=== PATIENT | male | born 1985 | race Caucasian/White ===

== ENCOUNTER 2016-08-07 22:19 | Emergency (ER) | payer BC ==
[2016-08-07 22:41] VITALS: TEMP 97.9; BMI 28.0
[2016-08-07 22:51] LABS: BASOPHIL 0.9 % (0-2.0); EOSINOPHIL 0.8 % (0-4.5); MCH 30.4 pg (25.7-33.7); MCHC 34.2 g/dl (32.0-35.9); MEAN CELL VOLUME 88.9 fl (80-96); MEAN PLT VOLUME 7.7 fl (7.5-11.1); NEUTROPHILS 50.4 % (42.8-82.8); PLATELET COUNT 276 K/MM3 (134-434); RDW 12.7 % (11.9-15.9); WHITE BLOOD COUNT 7.4 K/mm3 (4.0-10.0)
[2016-08-07 23:12] LABS: INR 1.1 (0.82-1.09); PROTHROMBIN TIME (PATIENT) 12.1 SEC (9.98-11.88)
[2016-08-07 23:21] LABS: ALBUMIN 4.1 g/dl (3.4-5.0); ANION GAP 13 (8-16); BILIRUBIN,TOTAL 0.6 mg/dL (0.2-1.0); CALCIUM 8.4 mg/dL (8.5-10.1); CO2 23 mmol/L (21-32); COCKROFT - GAULT 116.43; CREATININE 1.1 mg/dL (0.7-1.3); GLUCOSE,RANDOM 112 mg/dL (74-106); SGOT/AST 30 U/L (15-37); SGPT/ALT 78 U/L (12-78); TOT PROT 7.2 g/dl (6.4-8.2)
[2016-08-07 23:24] LABS: ALK PHOS 70 U/L (45-117); TROPONIN I < 0.02 ng/ml (0.00-0.05)
--- NOTE | 2016-08-08 00:21 | PDOC ---
History of Present Illness - General History Source: Patient Exam Limitations: No Limitations <Shelley Booker - Last Filed: 08/08/16 01:26> - General History Source: Patient Exam Limitations: No Limitations - History of Present Illness Presenting Symptoms: Chest Pain Timing/Duration: reports: gone now Severity/Quality: reports: moderate Location: reports: central Chest Pain Radiation: reports: other (left arm) Activities at Onset: reports: none Prior Chest Pain/Cardiac Workup: reports: Angina Modifying Factors: improves with: nitroglycerin Nitro Today/Relief: Yes: 0.4 mg x 2, provided by EMS Aspirin Received prior to arrival (Core Measure): Yes: 81 mg x 4, provided by EMS Beta Amber given by EMS (Core Measure): No Beta Amber taken at Home (Core Measure): No Beta Amber indicated at this time? (Core Measure): Yes (hypertensive) Associated Symptoms: Yes: Dizziness <Maegan Thomas - Last Filed: 08/09/16 01:40> - General Chief Complaint: Chest Pain Stated Complaint: CHEST PAIN Time Seen by Provider: 08/07/16 22:47 - History of Present Illness Initial Comments: 08/08/16 01:26 Patient is a 31 year old male with no significant past medical history who presents to the ED via EMS with complaint of chest pain. As per EMS, the patient was given 364 mg of ASA and 2 NIG. Patient reports a mid chest pain of sudden onset sharp in nature that radiated to the left arm that started at 9 PM and lasted until his arrival at the ED. 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 He denies any SOB, fever, chills, nausea or vomiting. He notes that he never had a stress test. SH: occasional smoker less than 5 cigarettes a month FH: mother thyroid disease, grandparents [place] PSH - lasix, meniscus surgery (Shelley Booker) Past History <Shelley Booker - Last Filed: 08/08/16 01:26> - Psycho/Social/Smoking Cessation Hx Anxiety: No Suicidal Ideation: No Smoking History: Current some day smoker Information on smoking cessation initiated: No Hx Alcohol Use: Yes <Maegan Thomas - Last Filed: 08/09/16 01:40> - Past Medical History Allergies/Adverse Reactions: Allergies Allergy/AdvReac Type Severity Reaction Status Date / Time No Known Allergies Allergy Verified 02/18/14 22:19 Home Medications: Ambulatory Orders NK [No Known Home Medication] 02/18/14 Review of Systems - Review of Systems Able to Perform ROS?: Yes <Shelley Booker - Last Filed: 08/08/16 01:26> <Maegan Thomas - Last Filed: 08/09/16 01:40> - Review of Systems Comments:: 08/08/16 01:26 CONSTITUTIONAL: Absent: fever, chills, diaphoresis, generalized weakness, malaise, loss of appetite HEENT: Absent: rhinorrhea, nasal congestion, throat pain, throat swelling, difficulty swallowing, mouth swelling, ear pain, eye pain, visual Changes CARDIOVASCULAR: PresentL chest pain Absent: syncope, palpitations, irregular heart rate, lightheadedness, peripheral edema RESPIRATORY: Absent: cough, shortness of breath, dyspnea with exertion, orthopnea, wheezing, stridor, hemoptysis GASTROINTESTINAL: Absent: abdominal pain, abdominal distension, nausea, vomiting, diarrhea, constipation, melena, hematochezia GENITOURINARY: Absent: dysuria, frequency, urgency, hesitancy, hematuria, flank pain, genital pain MUSCULOSKELETAL: Absent: myalgia, arthralgia, joint swelling SKIN: Absent: rash, itching, pallor HEMATOLOGIC/IMMUNOLOGIC: Absent: easy bleeding, easy bruising, lymphadenopathy, frequent infections ENDOCRINE: Absent: unexplained weight gain, unexplained weight loss, heat intolerance, cold intolerance NEUROLOGIC: Absent: headache, focal weakness or paresthesias, dizziness, unsteady gait, seizure, mental status changes, bladder or bowel incontinence PSYCHIATRIC: Absent: anxiety, depression, suicidal or homicidal ideation, hallucinations. (Shelley Booker) *Physical Exam <Shelley Booker - Last Filed: 08/08/16 01:26> <Maegan Thomas - Last Filed: 08/09/16 01:40> - Vital Signs Last Vital Signs Temp Pulse Resp BP Pulse Ox 97.9 F 71 16 142/90 100 08/07/16 22:38 08/08/16 01:40 08/08/16 01:40 08/08/16 01:40 08/08/16 01:40 - Physical Exam Comments: 08/08/16 01:27 GENERAL: Well developed, well nourished. Awake and alert. No acute distress. HEENT: Normocephalic, atraumatic. PERRLA, EOMI. No conjunctival pallor. Sclera are non- icteric. Moist mucous membranes. Oropharynx is clear. NECK: Supple. Full ROM. No JVD. Carotid pulses 2+ and symmetric, without bruits. No thyromegaly. No lymphadenopathy. CARDIOVASCULAR: Regular rate and rhythm. No murmurs, rubs, or gallops. Distal pulses are 2+ and symmetric. PULMONARY: No evidence of respiratory distress. Lungs clear to auscultation bilaterally. No wheezing, rales or rhonchi. ABDOMINAL: Soft. Non-tender. Non-distended. No rebound or guarding. No organomegaly. Normoactive bowel sounds. MUSCULOSKELETAL Normal range of motion at all joints. No bony deformities or tenderness. No CVA tenderness. EXTREMITIES: No cyanosis. No clubbing. No edema. No calf tenderness. SKIN: Warm and dry. Normal capillary refill. No rashes. No jaundice. NEUROLOGICAL: Alert, awake, appropriate. Cranial nerves 2-12 intact. No deficits to light touch and temperature in face, upper extremities and lower extremities. No motor deficits in the in face, upper extremities and lower extremities. Normoreflexic in the upper and lower extremities. Normal speech. PSYCHIATRIC: Cooperative. Good eye contact. Appropriate mood and affect. (Shelley Booker) ED Treatment Course - LABORATORY CBC & Chemistry Diagram: 08/07/16 22:45 08/07/16 22:45 <Shelley Booker - Last Filed: 08/08/16 01:26> - LABORATORY CBC & Chemistry Diagram: 08/07/16 22:45 08/07/16 22:45 <Maegan Thomas - Last Filed: 08/09/16 01:40> - ADDITIONAL ORDERS Additional order review: 08/07/16 22:45 RBC 4.96 MCV 88.9 MCHC 34.2 RDW 12.7 MPV 7.7 Neutrophils % 50.4 Lymphocytes % 39.9 D Monocytes % 8.0 Eosinophils % 0.8 Basophils % 0.9 - RADIOLOGY Radiology Studies Ordered: Category Date Time Status CHEST X-RAY PORTABLE* [RAD] Stat Radiology 08/08/16 00:08 Completed - Medications Given in the ED: ED Medications Discontinued Medications Generic Name Dose Route Start Last Admin Trade Name Lana PRN Reason Stop Dose Admin Metoprolol Tartrate 25 mg 08/08/16 01:25 08/08/16 02:12 Lopressor - PO 08/08/16 01:26 Not Given ONCE ONE Medical Decision Making <Shelley Booker - Last Filed: 08/08/16 01:26> <Maegan Thomas - Last Filed: 08/09/16 01:40> - Medical Decision Making 08/08/16 01:55 31 yo male dev chest pain tonight and called 911 pt received sl ntg and aspirin 364mg en route -ekg is nsr @ 79 bpm with no evidence of ischemia .No ekg changes since the ekg done in Feb no family h/o of early cardiac demise -spokes about 5 cigarettes a month yosvany troponin is negative -pt refusing to stay for second cardiac enzyme and signed AMA (Maegan Thomas) *DC/Admit/Observation/Transfer <Shelley Booker - Last Filed: 08/08/16 01:26> <Maegan Thomas - Last Filed: 08/09/16 01:40> Diagnosis at time of Disposition: AMA - Signed out against medical advice - Discharge Dispostion Disposition: AGAINST MEDICAL ADVICE - Patient Instructions Printed Discharge Instructions: DI for Chest Pain - Attestations Scribe Attestion: 08/08/16 01:27 Documentation prepared by BEULAH Gant, acting as center medical specialist for Maegan Thomas MD. (Shelley Booker)
[2016-08-08] MEDS ORDERED: METOPROLOL TARTRATE 25 MG TABLET (FP) PO ONE (01:25)
[2016-08-08 01:51] VITALS: BP 142/90; PULSE 71
--- NOTE | 2016-08-09 08:19 | EKG ---
Test Reason : Blood Pressure : / mmHG Vent. Rate : 079 BPM Atrial Rate : 079 BPM P-R Int : 174 ms QRS Dur : 092 ms QT Int : 374 ms P-R-T Axes : 045 012 006 degrees QTc Int : 428 ms NORMAL SINUS RHYTHM POSSIBLE ANTERIOR INFARCT , AGE UNDETERMINED ABNORMAL ECG WHEN COMPARED WITH ECG OF 18-FEB-2014 23:50, NO SIGNIFICANT CHANGE WAS FOUND Confirmed by TATIANA HEARD MD ([id number]) on 08/09/2016 8:18:48 AM Referred By: Confirmed By:TATIANA HEARD MD
== END 2016-08-08 02:13 | disposition left against medical advice (07) ==
LOC: JER 22:19
DX: Z53.21 Procedure and treatment not carried out due to patient leaving prior to being seen by health care provider (principal); F17.210 Nicotine dependence, cigarettes, uncomplicated
CPT/HCPCS: 36415; 71010-TC; 80053; 82550; 84484; 85025; 85610; 93005; 93010; 99282-25

== ENCOUNTER 2017-08-10 09:46 | Day surgery (SDC) | payer BC ==
[2017-08-10 10:21] VITALS: BMI 30.4
[2017-08-10] MEDS ORDERED: PROPOFOL 20 ML ONE (11:24)
[2017-08-10 12:25] VITALS: TEMP 97.6
[2017-08-10 13:51] VITALS: BP 120/86; PULSE 63
--- NOTE | 2017-08-13 13:03 | PATH ---
Surgical Pathology Report Patient Name: SERA EDUARDO [facility]. Rec. #: [id number] /Age/Gender: 1985 (Age: 32) / M Account: [id number] Location: U-ENDOSCOPY Taken: 08/10/2017 Received: 08/10/2017 Reported: 08/13/2017 Physicians: Benton Barnhart M.D. Specimen(s) Received A: BX SECOND PORTION DUODENUM & DUODENAL BULB B: BX GASTIC FUNDUS POLYP C: BX ANTRUM D: BX DISTAL AND MID ESOPHAGUS Clinical History Heartburn, dysphagia Postoperative diagnosis: Gastric polyp, erosive gastritis Final Diagnosis A. DUODENUM, SECOND PORTION AND DUODENAL BULB, BIOPSY: DUODENAL MUCOSA WITHOUT SIGNIFICANT PATHOLOGIC FINDINGS. B. STOMACH, FUNDUS, POLYP, BIOPSY: POLYPOID GASTRIC OXYNTIC MUCOSA WITH MODERATE CHRONIC GASTRITIS. IMMUNOHISTOCHEMICAL STAIN FOR H. PYLORI IS NEGATIVE. C. STOMACH, ANTRUM, BIOPSY: GASTRIC ANTRUM MUCOSA WITH MILD CHRONIC GASTRITIS. IMMUNOHISTOCHEMICAL STAIN FOR H. PYLORI IS NEGATIVE. D. DISTAL AND MID ESOPHAGUS, BIOPSY: SQUAMOUS MUCOSA WITH VASCULAR CONGESTION. Electronically Signed Skylar Sewell M.D. Gross Description A. Received in formalin, labeled "biopsy second portion of duodenum and duodenal bulb" are 4 leonard, irregular portions of soft tissue ranging from 0.2-0.6 cm. in greatest dimension. The specimens are submitted in toto in one cassette. B. Received in formalin, labeled "biopsy gastric fundus polyp" are 2 leonard, irregular portions of soft tissue averaging 0.2 cm. in greatest dimension. The specimens are submitted in toto in one cassette. C. Received in formalin, labeled "biopsy antrum" are 4 leonard, irregular portions of soft tissue ranging from 0.1-0.5 cm. in greatest dimension. The specimens are submitted in toto in one cassette. D. Received in formalin, labeled "biopsy distal and mid esophagus" are 4 leonard, irregular portions of soft tissue ranging from 0.1-0.4 cm. in greatest dimension. The specimens are submitted in toto in one cassette. DL/08/10/2017 saudi/08/10/2017
== END 2017-08-10 13:15 | disposition home or self-care (01) ==
LOC: JOR 09:46 → JASU-ENDO 09:46
PROVIDERS: ATTEND Internal Medicine Gastroenterology
PROC: 0DB68ZX Excision of Stomach, Via Natural or Artificial Opening Endoscopic, Diagnostic (ICD-10-PCS; 2017-08-10)
PROC: 0DB28ZX Excision of Middle Esophagus, Via Natural or Artificial Opening Endoscopic, Diagnostic (ICD-10-PCS; 2017-08-10)
PROC: 0DB38ZX Excision of Lower Esophagus, Via Natural or Artificial Opening Endoscopic, Diagnostic (ICD-10-PCS; principal; 2017-08-10 11:00)
DX: K21.9 Gastro-esophageal reflux disease without esophagitis (principal); K31.7 Polyp of stomach and duodenum; K25.9 Gastric ulcer, unspecified as acute or chronic, without hemorrhage or perforation
CPT/HCPCS: 88305-TC; 88342-TC

== ENCOUNTER 2021-08-05 13:28 | Emergency (ER) | payer SELFPAY ==
[2021-08-05 13:37] VITALS: BP 160/108; PULSE 89; TEMP 97.7; BMI 30.7
[2021-08-05] MEDS ORDERED: IBUPROFEN 600 MG TABLET (FP) PO ONE (13:40)
[2021-08-05] MEDS ORDERED: DIPHTH,PERTUSS(ACELL),TET 0.5 ML DISP.SYRIN IM ONE (13:40)
[2021-08-05] MEDS ORDERED: LIDOCAINE HCL 1%, 10 MG/ML (50 mL VIAL) SQ ONE (13:40)
== END 2021-08-05 14:55 | disposition home or self-care (01) ==
LOC: JERFT 13:28
PROC: 0HQGXZZ Repair Left Hand Skin, External Approach (ICD-10-PCS; principal; 2021-08-05)
PROC: 3E0234Z Introduction of Serum, Toxoid and Vaccine into Muscle, Percutaneous Approach (ICD-10-PCS; 2021-08-05)
DX: S61.215A Laceration without foreign body of left ring finger without damage to nail, initial encounter (principal); W26.0XXA Contact with knife, initial encounter
CPT/HCPCS: 90715; 99283-25